=== PATIENT | male | born 1990 | race African-American/Black ===

== ENCOUNTER 2017-12-04 21:08 | Inpatient (IN) ==
[2017-12-05] MEDS ORDERED: Acetaminophen 325 MG Tablet PO PRN (00:36)
[2017-12-05] MEDS ORDERED: Aluminum/Magnesium/Simethacone Susp 30 ML UDC PO PRN (00:38)
[2017-12-05 06:48] VITALS: BP 90/53; PULSE 54; RESP 16; TEMP 97.5; O2SAT 100
--- NOTE | 2017-12-05 11:14 | P.HPPSY ---
Provisional Diagnosis Admission Date: December 05, 2017 00:10 [place] I.: 1. 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 Polysubstance abuse [place] II.: Deferred Competence Certification of Person's Competence To Provide Express and Informed Consent I have personally examined Antony Murphy, a person being served at [facility] on, December 05, 2017 1114. Express and informed consent means consent voluntarily given in writing, by a competent person, after sufficient explanation and disclosure of the subject matter involved to enable the person to make a knowing and willful decision without any element of force, fraud, deceit, duress, or other form of constraint or coercion. This person is 18 years of age or older, is not now known to be incompetent to consent to treatment with a guardian advocate, and does not have a health care surrogate or proxy currently making medical treatment decisions. I have found this person to be one of the following: [] Competent to provide express and informed consent, as defined above, for voluntary admission to this facility and is competent to provide express and informed consent for treatment. He/she has the consistent capacity to make well reasoned, willful, and knowing decisions concerning his or her medical or mental health treatment. The person fully and consistently understands the purpose of the admission for examination/placement and is fully capable of personally exercising all rights [place] Incompetent to provide express and informed consent to voluntary admission, and this is incompetent to provide express and informed consent to treatment. The person must be transferred to involuntary status and a petition for a guardian advocate filed with the Circuit Court. [X] Refusing to provide express and informed consent to voluntary admission but is competent to provide express and informed consent for treatment. The person must be discharged or transferred to involuntary status. Form shall be completed within 24 hours of a person's arrival at the receiving facility and filed in the clinical record of each person: 1. Admitted on a voluntary basis 2. Permitted to provide express and informed consent to his/her own treatment 3. Allowed to transfer from involuntary to voluntary status 4. Prior to permitting a person to consent to his or her own treatment after having been previously found incompetent to consent to treatment. History of Present Illness Capacity: Has capacity Chief Complaint: Godwin Act History of Present Illness: Mr. Murphy is a 27 year-old male with no reported past psychiatric history who presents in transfer from [facility] under a Godwin act. The patient presented there under a Godwin act by [facility]'s office alleging that the patient was running into traffic and saying someone was trying to kill him. His urine toxicology was positive for cannabinoids and opiates at outside hospital, and documentation from outside hospital indicates that the patient was previously hospitalized there for an episode of drug intoxication with Nidhi. According to documentation from outside hospital, the patient was medically hospitalized secondary to encephalopathy. He was seen in psychiatric consultation by Dr. Cormier. Reviewing our electronic medical record , I see no previous psychiatric contact within our system. Patient seen and examined with nurse. Chart reviewed. Case discussed with nursing staff. On my examination today, the patient is calm and cooperative. There is no evidence of delirium or encephalopathy. He is presently clinically sober and reports that he does not have a good recollection of the circumstances alleged in the Godwin act. He says that he smoked a blunt possibly laced with other substances and blacked out. The next thing he knew, he woke up at [facility]. Presently, the patient denies any suicidal or homicidal ideation, intent or plan. He says that he wants to live for his son. He tells me that so far as he knows there is no one trying to kill him. I can elicit no depressive or hypomanic/manic symptoms. He denies any audiovisual hallucinations. I can elicit no delusional material. There is no evidence of impairment in reality construction at this time. He was started on some Seroquel at outside hospital, which he is tolerating well, and which he is agreeable to continuing after discharge. Remainder of the psychiatric ROS is negative. The patient has no acute physical complaints. He is requesting discharge from the psychiatric unit today. Past psychiatric history: The patient denies a history of psychiatric diagnosis. He says that he has struggled chronically with nightmares but denies any history of trauma. He is not presently under the care of a psychiatrist. He denies any history of psychiatric admissions. He denies any history of suicide attempts. He denies any history of nonsuicidal self- injurious behavior. He denies any history of violent behavior. Family history: The patient reports that his maternal uncle has bipolar disorder. He denies a family history of suicide. Chemical dependency history: The patient admits to recent use of cannabis and MDMA. He denies any use of other substances including flakka, K2, opiates including heroin or pain pills, cocaine, alcohol, benzodiazepines. He says that his longest sober time is on the order of months in an unmonitored setting. He has never pursued drug rehabilitation. Social history: The patient reports that he was recently released from [facility], where he spent 70 days for drug sales, having been released on 12/01. He is single and has a son aged 10 who resides with son's mother. He has a grade 8 education and does not work. He denies any history. Denies any access to guns or firearms. Denies any yazidi or spiritual beliefs. Past medical history: The patient reports a history of hypertension. Medications: The patient reports that he takes no home medications. Allergies: The patient denies any known allergies. With the patient's permission, I have obtained collateral information from the patient's mother Madelin Murphy at the number listed in the EMR. She spoke with the patient yesterday evening and feels that he is improved. She is comfortable with the patient returning home today. She notes that he has no history of suicide or violence. 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 Mother notes that the patient resides with her and patient 's girlfriend. I have instructed mother to secure the home environment of potential means of harm to self or others including but not limited to guns, knives and medications out of an abundance of caution. I have also educated her regarding the mechanisms in place to have the patient brought back for further psychiatric evaluation should the need arise including voluntary psychiatric evaluation, Godwin act and ex parte. I have also discussed with her the [place] act. - Inpatient Certification Plans for Post Hospital Care: Home Review of Systems All other systems reviewed negative except as stated in HPI PMFSH - History History Provided By: Patient - Tobacco History Second Hand Smoke Exposure: Yes Tobacco Use In Past 30 Days: Yes Smoking Status: Current every day smoker Tobacco Type: Cigarettes - Alcohol History How Often Do You Have a Drink Containing Alcohol: 2 to 4 times a month - Substance Use History Substance History: Active Abuse - Substance Use Type Marijuana Type: smokes marijuanna Status: Active Route Used: By Mouth, Inhalation Frequency: 1 or 2 times a week Last Used: 1 or 2 timesa a week Reason for Use: Feels Good, Get High, Sleep Comment: "I smoke once or twice a week or when I have money" Opiates Status: Active Route Used: By Mouth Frequency: daily Reason for Use: Calm Down, Feels Good, Get High [facility] Status: Active Route Used: By Mouth Frequency: occasional Reason for Use: Feels Good, Get High - Travel History Recent Travel in the [place] Within the Last 8 Weeks: No Recent Travel Out of the Country Within the Last 8 Weeks: No - Immunization History Tetanus Immunization: Unsure Hx Influenza Vaccine This Season: No Quality Measures - Psychiatric History Psychological trauma history: Denies any history of trauma - Patient Strengths Patient's strengths (minimum of 2): Attending to basic needs. Verbally fluent. Medications and Allergies Active Medications: Active Medications Acetaminophen (Tylenol) 650 mg PO Q4H PRN PRN Reason: PAIN 1-5 OR TEMP > 101 Al Hydrox/Mg Hydrox/Simethicone (Mag-Al Plus Susp Liq) 30 ml PO Q6H PRN PRN Reason: DYSPEPSIA Al Hydroxide/Mg Hydroxide (Milk Of Magnesia Liq) 30 ml PO Q24H PRN PRN Reason: CONSTIPATION Allergies Allergy/AdvReac Type Severity Reaction Status Date / Time No Known Allergies Uncoded 05/27/09 13:23 Results - Labs Labs: Laboratories from outside hospital reviewed: CBC reveals mild leukocytosis at 11.3, which normalized on reevaluation. Hemoglobin and platelets within normal limits. CMP reveals mildly elevated creatinine at 1.28. GFR is 89.3. No transaminitis. Ammonia level is within normal limits. TSH is within normal limits. Tylenol, salicylate and alcohol levels are all undetectable. Urinalysis results reviewed. Urine toxicology positive for cannabinoids and opiates. CK was initially elevated at approximately 1000 but was downtrending at time of discharge. Head CT was read as no acute intracranial abnormality. Chest x-ray was read as normal. Exam Vital signs: Vital Signs 12/05/17 00:34 12/05/17 06:47 Temperature 98.1 F 97.5 F L Pulse Rate 75 54 L Respiratory Rate 18 16 Blood Pressure 127/75 90/53 L Pulse Oximetry 98 100 Intake & Output 12/04/17 12/05/17 12/05/17 18:59 06:59 18:59 Weight 95.8 kg Other: Weight On Admission 95.8 kg Narrative: Physical examination was completed by ED provider. On my examination today, the patient appears to be in no acute physical distress. No motor abnormalities noted. No signs of intoxication or withdrawal noted. Labs and vital signs reviewed. Mental Status Examination Appearance: Appropriate Consciousness: Alert Orientation: x4 Motor Activity: Normal gait Speech: Unremarkable Language: Adequate Fund of Knowledge: Adequate Attention and Concentration: Adequate Memory: Unremarkable (Grossly intact on clinical exam) Mood: Appropriate Affect: Appropriate Thought Process & Associations: Intact, Logical, Linear Thought Content: Appropriate Hallucination Type: None Delusion Type: None Suicidal Ideation: No Suicidal Plan: No Suicidal Intention: No Homicidal Ideation: No Homicidal Plan: No Homicidal Intention: No Mental Status Exam Remarks: Insight and judgment are perhaps fair Assessment and Plan - Assessment (1) Drug-induced psychotic disorder Code(s): F19.959 - Other psychoactive substance use, unspecified with psychoactive substance-induced psychotic disorder, unspecified Status: Resolved (2) Polysubstance abuse Code(s): F19.10 - Other psychoactive substance abuse, uncomplicated Status: Chronic - Plan Plan: 27-year-old male with psychiatric history as detailed above who presents in transfer from outside hospital under a Godwin act. On my evaluation today, the patient is clinically sober. There is no evidence of ongoing encephalopathy. He denies any suicidal or homicidal ideation. There is no evidence of unstable mental illness as defined under the Godwin act. He appears to be attending to his basic needs. I have obtained reassuring collateral information from the patient's mother. Synthesizing this information and based on the available evidence, I curb builder that the patient does not meet criteria for involuntary psychiatric hospitalization. He is requesting discharge from the inpatient psychiatric unit, and I have no basis to retain him over his objection. It is my suspicion that the patient was experiencing a transient drug-induced psychosis, now resolved, related to his use of illicit substances. I have strongly recommended that the patient pursue chemical dependency evaluation and treatment on an outpatient basis, and the counselor will provide the appropriate referrals. I did offer to try to arrange for transfer to drug rehabilitation program today, but he has declined. I have also recommended that he follow up with primary care for his elevated CK and reported history of hypertension. He was prescribed Seroquel 50 mg twice daily at outside hospital , and I will continue this with a prescription on discharge for 15 days of Seroquel 50 mg twice daily with 1 refill. This note serves also as my discharge summary. Justification for Continued Inpatient Stay: N/A.
== END 2017-12-05 19:15 | disposition home or self-care (01) ==
LOC: H270 12-05 00:10
PROVIDERS: ADMIT Psychiatry & Neurology Psychiatry; ATTEND Psychiatry & Neurology Psychiatry